=== PATIENT | female | born 1940 | race Caucasian/White ===

== ENCOUNTER 2017-02-12 10:03 | Inpatient (IN) ==
[2017-02-12] MEDS ORDERED: Nitroglycerin 25 MG/250 ML INFUS..BTL IVC ONE (10:08)
[2017-02-12] MEDS: Nitroglycerin 25 MG/250 ML INFUS..BTL IVC SCH ×4 (10:13→20:15)
[2017-02-12] MEDS ORDERED: Furosemide 40 MG/4 ML VIAL ONE (10:16)
[2017-02-12] MEDS ORDERED: Furosemide 80 MG in 0.9 % Sodium Chloride 50 ML IVPB ONE (10:16)
[2017-02-12 10:40] LABS: Basophils % 0.4 %; Eosinophils # 0.1 K/mcL (0.0-0.6); Eosinophils % 1.4 %; Hematocrit 38.8 % (35.3-44.9); Immature Granulocytes % 0.7 % (0-4); Lymphocytes # 1.6 K/mcL (0.6-4.6); Lymphocytes % 22.4 %; Mean Corpuscular HGB Conc 30.9 g/dL (31.6-35.5); Mean Corpuscular Hemoglobin 31.4 pg (28.0-33.3); Mean Corpuscular Volume 101.6 fL (83.0-100.0); Mean Platelet Volume 10.7 fL (9.4-12.4); Monocytes # 0.7 K/mcL (0.0-1.3); Monocytes % 9.2 %; Neutrophils # 4.8 K/mcL (1.6-8.9); Platelet Count 150 K/mcL (140-400); Red Blood Count 3.82 M/mcL (3.82-4.97); Red Cell Distribution Width 12.7 % (11.5-14.5); Segmented Neutrophils % 65.9 %
[2017-02-12 10:50] LABS: BUN/Creatinine Ratio 27 (6-26); Blood Urea Nitrogen 24 mg/dL (7-20); Calcium 9.2 mg/dL (8.6-10.8); Carbon Dioxide 33 mEq/L (19-29); Chloride 102 mEq/L (98-109); Glucose 179 mg/dL (70-99); Osmolality,Calculated 309 (280-300); Potassium 4.1 mEq/L (3.5-4.5); Sodium 145 mEq/L (136-145); eGFR For African Americans > 60 (> 60); eGFR For Non-African Americans > 60 (> 60)
[2017-02-12 10:53] LABS: ABG Base Excess 7.4 mEq/L (-2.0 to 3.0); ABG HCO3 34.8 mEQ/L (21-27); ABG Oxygen Saturation 96 % (95-98); ABG PCO2 63 mmHg (35-45); ABG PH 7.35 pH Units (7.32-7.45); ABG PO2 84 mmHg (85-104); ABG TCO2 36.7 mEq/L (20-26)
[2017-02-12 10:54] LABS: Blood Gas FiO2 50 %
--- NOTE | 2017-02-12 13:41 | General Surg History&Physical ---
Date of Encounter: 02/12/17 Time of Encounter: 14:00 History of Present Illness Chief complaint: Shortness of breath HPI: Ms. Burns is a 76 year old female with past medical history of HTN, A. fib with pacemaker on warfarin, diabetes mellitus type 2 and surgical history of appendicitis, cholecystitis, hysterectomy. Patient had a scheduled cataract surgery today but became altered with shortness of breath and desatting at 50% after the surgery. She states that the shortness of breath started as she tried to get up from the surgical bed. This has not happened in the past. Patient was placed on BIPAP and received 40mg lasix with 25 mg Nitroglycerin before arrival to ICU. Her oxygen saturation at 93% 3L BIPAP currently. Troponin is negative x1. Repeat EKG has no ST elevation and stat echo is ordered. Patient is greatly improved currently. Denies any fever, chills, nausea, vomiting. Denies chest pain, palpitations, or current shortness of breath. Denies any headache, dizziness. Post-surgical right eye vision changes present and expected. Has no other complaints. Past Med Surg Social Fam HX - Past Medical History Medical history: atrial fibrillation, CHF, diabetes, hypertension - Past Surgical History Surgical History: pacemaker/AICD - Social History Smoking Status: Former smoker Smokeless Tobacco Status: No Alcohol use: none Drug use: none Medications and Allergies Divalproex (12 HR) [Depakote (12 HR)] 250 mg PO BID 02/12/17 [History] Flaxseed Oil [[place]-3 Flaxseed Oil] 1,000 mg PO DAILY 02/12/17 [History] Furosemide [Lasix] 40 mg PO DAILY 02/12/17 [History] Gabapentin [Neurontin] 600 mg PO TID 02/12/17 [History] Garlic [Odor Free Garlic] 100 mg PO DAILY 02/12/17 [History] Glimepiride [Amaryl] 4 mg PO BID 02/12/17 [History] Lisinopril [Zestril] 40 mg PO DAILY 02/12/17 [History] Multivitamin/Iron/Folic Acid [Centrum Complete Multivit Tab] 1 tab PO DAILY [History] Oxybutynin Chloride [Ditropan Xl] 10 mg PO BID 02/12/17 [History] Potassium Chloride [Klor-Con 10] 10 meq PO DAILY 02/12/17 [History] Prevagen 1 tab PO DAILY 02/12/17 [History] Rosuvastatin Calcium [Crestor] 10 mg PO DAILY 02/12/17 [History] SitaGLIPtin [Januvia] 100 mg PO DAILY 02/12/17 [History] Sotalol [Betapace] 80 mg PO Q12HR 02/12/17 [History] Tizanidine HCl 2 mg PO BID 02/12/17 [History] Torsemide [Demadex] 20 mg PO DAILY 02/12/17 [History] Warfarin [Coumadin] 5 mg PO MOWEFR 02/12/17 [History] Warfarin [Coumadin] 7.5 mg PO SUTUTHSA 02/12/17 [History] Zinc Gluconate [Zinc] 30 mg PO DAILY 02/12/17 [History] 3 Allergy/AdvReac Type Severity Reaction Status Date / Time adhesive tape Allergy Rash Verified 02/12/17 10:32 Sulfa (Sulfonamide Allergy See Verified 02/12/17 10:32 Antibiotics) Comments Review of Systems All systems PM: A 10-system review of systems was performed and is negative for pertinent findings except as documented above in the HPI. - Constitutional no chills, no fatigue, no fever(s), no headache(s), no weakness, no weight loss - EENT Eyes: right: blurred vision (expected post surgical blurriness), decreased vision (expected post surgical vision changes) Nose, mouth and throat: no abnormal hearing, no neck mass, no sore throat - Cardiovascular other (Patient has a pacemaker ), no chest pain, no chest pain at rest, no chest pain with activity, no diaphoresis, no dyspnea, no dyspnea on exertion, no palpitations, no pedal edema, no radiating pain, no rapid heart rate - Respiratory no dyspnea, no hemoptysis, no wheezing - Gastrointestinal no abdominal pain, no bloating, no diarrhea, no hematemesis, no melena, no vomiting - Genitourinary Genitourinary: no dysuria, no flank pain - Musculoskeletal no muscle weakness, no numbness, no tingling - Integumentary no new lesions, no non-healing lesions, no swelling, no unusual bruising, no wounds - Neurological loss of vision (post surgical vision changes), no confusion, no dizziness, no frequent falls, no headache(s), no memory loss, no numbness, no radicular pain, no sensory deficit, no syncope, no tingling - Psychiatric no confusion, no memory loss - Endocrine no palpitations - Hematologic/Lymphatic no easy bleeding General Surgery Exam Initial Vital Signs Temp Pulse Resp BP Pulse Ox 97.5 F L 81 20 206/104 84 02/12/17 10:04 02/12/17 10:04 02/12/17 10:04 02/12/17 10:04 02/12/17 10:04 - General physical appearance well developed, well nourished, no distress - Eyes PERRL, normal ocular movement Results - Labs 02/12/17 10:20 02/12/17 10:20 Abnormal lab results MCV 101.6 fL (83.0-100.0) H 02/12/17 10:20 MCHC 30.9 g/dL (31.6-35.5) L 02/12/17 10:20 ABG pCO2 63 mmHg (35-45) H 02/12/17 10:45 ABG pO2 84 mmHg (85-104) L 02/12/17 10:45 ABG HCO3 34.8 mEQ/L (21-27) H 02/12/17 10:45 ABG Total CO2 36.7 mEq/L (20-26) H 02/12/17 10:45 ABG Base Excess 7.4 mEq/L (-2.0 to 3.0) H 02/12/17 10:45 Carbon Dioxide 33 mEq/L (19-29) H 02/12/17 10:20 BUN 24 mg/dL (7-20) H 02/12/17 10:20 BUN/Creatinine Ratio 27 (6-26) H 02/12/17 10:20 Glucose 179 mg/dL (70-99) H 02/12/17 10:20 POC Glucose 192 (58-89) H 02/12/17 13:19 Calculated Osmolality 309 (280-300) H 02/12/17 10:20 B-Natriuretic Peptide 833 pg/mL (0-100) H 02/12/17 10:20 All other labs normal.
[2017-02-12] MEDS ORDERED: D5% in Water 1,000 ML IVC PRN (14:12)
[2017-02-12] MEDS ORDERED: *HR* Dextrose 50 % in Water (Syg) 50 ML SYRINGE IVP PRN (14:12)
[2017-02-12] MEDS ORDERED: Dextrose Gel 15 GM PO PRN ×2 (14:12)
--- NOTE | 2017-02-12 14:38 | Emergency Department Note ---
Disposition Clinical Impression: Flash pulmonary edema Disposition: Admitted As Inpatient Condition: Critical General Adult HPI - General Chief complaint: ED Shortness of Breath/Dyspnea Stated complaint: PILLO Time Seen by Provider: 02/12/17 10:15 Source: EMS Nursing Notes Reviewed: Yes Vital Signs Reviewed: Yes - History of Present Illness HPI Narrative: 76-year-old female who presents with concern for pulmonary edema. She apparently was on a cataract surgery in developed acute dyspnea. She was minimally responsive on EMS arrival. Her O2 saturations were 50%. She was started on CPAP at a pressure of 10 and had improvement of mental status as well as hypoxia. On arrival here she presents dyspneic as well as lethargic. She has mild hypoxia. She is currently on CPAP which was initiated by our prehospital providers. Pain Scale: 0 - Related Data Home Medications Medication Instructions Recorded Confirmed Divalproex (12 HR) [Depakote (12 250 mg PO BID 02/12/17 02/12/17 HR)] Flaxseed Oil [[place]-3 Flaxseed Oil] 1,000 mg PO DAILY 02/12/17 02/12/17 Furosemide [Lasix] 40 mg PO DAILY 02/12/17 02/12/17 Gabapentin [Neurontin] 600 mg PO TID 02/12/17 02/12/17 Garlic [Odor Free Garlic] 100 mg PO DAILY 02/12/17 02/12/17 Glimepiride [Amaryl] 4 mg PO BID 02/12/17 02/12/17 Lisinopril [Zestril] 40 mg PO DAILY 02/12/17 02/12/17 Multivitamin/Iron/Folic Acid 1 tab PO DAILY 02/12/17 02/12/17 [Centrum Complete Multivit Tab] Oxybutynin Chloride [Ditropan Xl] 10 mg PO BID 02/12/17 02/12/17 Potassium Chloride [Klor-Con 10] 10 meq PO DAILY 02/12/17 02/12/17 Prevagen 1 tab PO DAILY 02/12/17 Rosuvastatin Calcium [Crestor] 10 mg PO DAILY 02/12/17 02/12/17 SitaGLIPtin [Januvia] 100 mg PO DAILY 02/12/17 02/12/17 Sotalol [Betapace] 80 mg PO Q12HR 02/12/17 02/12/17 Tizanidine HCl 2 mg PO BID 02/12/17 02/12/17 Torsemide [Demadex] 20 mg PO DAILY 02/12/17 02/12/17 Warfarin [Coumadin] 5 mg PO MOWEFR 02/12/17 02/12/17 Warfarin [Coumadin] 7.5 mg PO SUTUTHSA 02/12/17 02/12/17 Zinc Gluconate [Zinc] 30 mg PO DAILY 02/12/17 02/12/17 Allergies Allergy/AdvReac Type Severity Reaction Status Date / Time adhesive tape Allergy Rash Verified 02/12/17 10:32 Sulfa (Sulfonamide Allergy See Verified 02/12/17 10:32 Antibiotics) Comments All systems ED: reviewed and negative except as stated. Past Medical History - Past Medical History Medical history: Reports: atrial fibrillation, CHF, diabetes, hypertension Surgical history: Reports: pacemaker/AICD - Social History Smoking Status: Former smoker Smokeless Tobacco Status: No Alcohol use: Reports: none Drug use: Reports: none Physical Exam Rales to the apices - General Limitations: no limitations General appearance: lethargic, in distress - Head Head exam: atraumatic - Eye Eye exam: Present: normal appearance - ENT ENT exam: other (JVD) - Respiratory Respiratory exam: Present: normal lung sounds bilaterally - Cardiovascular Cardiovascular exam: Present: regular rate - Abdominal Exam Abdominal exam: Present: soft, Non-Tender - Expanded Lower Extremity Exam Neurovascular/Tendon exam: Present: normal capillary refill. Absent: pulse deficit Gait: observed and normal - Back Exam Back exam: Present: normal inspection, full ROM - Neurological Exam Neurological exam: Present: alert, oriented X3, CN II-XII intact - Psychiatric Psychiatric exam: Present: normal affect, depressed - Skin Skin exam: Present: warm - Other Other exam information: Peripheral edema Course Vital Signs Temperature 97.5 F L 02/12/17 10:04 Pulse Rate 81 02/12/17 10:04 Respiratory Rate 20 02/12/17 10:04 Blood Pressure 206/104 02/12/17 10:04 O2 Sat by Pulse Oximetry 84 02/12/17 10:04 Temperature 97.6 F 02/12/17 13:10 Pulse Rate 69 02/12/17 14:00 Respiratory Rate 16 02/12/17 14:00 Blood Pressure 148/72 02/12/17 14:00 O2 Sat by Pulse Oximetry 89 02/12/17 14:00 Oxygen Delivery Oxygen Delivery Nasal Cannula Medical Decision Making - MDM Narrative Medical decision making narrative: 76-year-old female is found to be in flash pulmonary edema. Subsequently determined to be hypertensive. She was placed on BiPAP. She did have some hypoxia on BiPAP so I increased her insulin extra pressure is 20/10. Her work of breathing improved with increased BiPAP settings. Additionally she was started on high dose nitroglycerin infusion and given furosemide. A Samano catheter was placed for strict I's and O's. Rest her status improved on BiPAP. She will be admitted to the intensive care unit for ongoing management of respiratory failure in the setting of flash pulmonary edema. I did order an echocardiogram and this is pending. EKG shows nonspecific changes. - Medical Records Medical records reviewed: Yes I reviewed the patient's medical records. - Lab Data Lab results reviewed: Yes I reviewed the patient's lab results. Result diagrams: 02/12/17 10:20 02/12/17 10:20 Lab Results 02/12/17 02/12/17 02/12/17 Range/Units 10:20 10:20 10:20 WBC 7.2 (4.3-11.1) K/mcL RBC 3.82 (3.82-4.97) M/mcL Hgb 12.0 (11.5-15.4) g/dL Hct 38.8 (35.3-44.9) % MCV 101.6 H (83.0-100.0) fL MCH 31.4 (28.0-33.3) pg MCHC 30.9 L (31.6-35.5) g/dL RDW 12.7 (11.5-14.5) % Plt Count 150 (140-400) K/mcL MPV 10.7 (9.4-12.4) fL Immature Gran % 0.7 (0-4) % Seg Neutrophils % 65.9 % Lymphocytes % 22.4 % Monocytes % 9.2 % Eosinophils % 1.4 % Basophils % 0.4 % Neutrophils # 4.8 (1.6-8.9) K/mcL Lymphocytes # 1.6 (0.6-4.6) K/mcL Monocytes # 0.7 (0.0-1.3) K/mcL Eosinophils # 0.1 (0.0-0.6) K/mcL Basophils # 0.0 (0.0-0.2) K/mcL ABG pH (7.32-7.45) pH Units ABG pCO2 (35-45) mmHg ABG pO2 (85-104) mmHg ABG HCO3 (21-27) mEQ/L ABG Total CO2 (20-26) mEq/L ABG O2 Saturation (95-98) % ABG Base Excess (-2.0 to 3.0) mEq/L Blood Gas Modality Inspired O2 % Sodium 145 (136-145) mEq/L Potassium 4.1 (3.5-4.5) mEq/L Chloride 102 (98-109) mEq/L Carbon Dioxide 33 H (19-29) mEq/L BUN 24 H (7-20) mg/dL Creatinine 0.90 (0.57-1.11) mg/dL Est GFR ( Amer) > 60 (> 60) Est GFR (Non-Af Amer) > 60 (> 60) BUN/Creatinine Ratio 27 H (6-26) Glucose 179 H (70-99) mg/dL Calculated Osmolality 309 H (280-300) Lactic Acid (0.5-2.2) mmol/L Calcium 9.2 (8.6-10.8) mg/dL Troponin I 0.01 (0-0.03) ng/mL B-Natriuretic Peptide (0-100) pg/mL 02/12/17 02/12/17 02/12/17 Range/Units 10:20 10:33 10:45 WBC (4.3-11.1) K/mcL RBC (3.82-4.97) M/mcL Hgb (11.5-15.4) g/dL Hct (35.3-44.9) % MCV (83.0-100.0) fL MCH (28.0-33.3) pg MCHC (31.6-35.5) g/dL RDW (11.5-14.5) % Plt Count (140-400) K/mcL MPV (9.4-12.4) fL Immature Gran % (0-4) % Seg Neutrophils % % Lymphocytes % % Monocytes % % Eosinophils % % Basophils % % Neutrophils # (1.6-8.9) K/mcL Lymphocytes # (0.6-4.6) K/mcL Monocytes # (0.0-1.3) K/mcL Eosinophils # (0.0-0.6) K/mcL Basophils # (0.0-0.2) K/mcL ABG pH 7.35 (7.32-7.45) pH Units ABG pCO2 63 H (35-45) mmHg ABG pO2 84 L (85-104) mmHg ABG HCO3 34.8 H (21-27) mEQ/L ABG Total CO2 36.7 H (20-26) mEq/L ABG O2 Saturation 96 (95-98) % ABG Base Excess 7.4 H (-2.0 to 3.0) mEq/L Blood Gas Modality ST Inspired O2 50 % Sodium (136-145) mEq/L Potassium (3.5-4.5) mEq/L Chloride (98-109) mEq/L Carbon Dioxide (19-29) mEq/L BUN (7-20) mg/dL Creatinine (0.57-1.11) mg/dL Est GFR ( Amer) (> 60) Est GFR (Non-Af Amer) (> 60) BUN/Creatinine Ratio (6-26) Glucose (70-99) mg/dL Calculated Osmolality (280-300) Lactic Acid 1.4 (0.5-2.2) mmol/L Calcium (8.6-10.8) mg/dL Troponin I (0-0.03) ng/mL B-Natriuretic Peptide 833 H (0-100) pg/mL Critical Care Time Total Critical Care Time: 31 Attestation: Greater than 31 minutes of critical care time was assessed in this acutely ill patient requiring noninvasive ventilatory support. This was excluding billable procedures
--- NOTE | 2017-02-12 15:10 | Pulmonology History & Physical ---
<Leeroy Hicks - Last Filed: 02/12/17 15:23> Date of Encounter: 02/12/17 Time of Encounter: 14:30 Assessment and Plan (1) Flash pulmonary edema Current visit: Yes Status: Acute Patient received lasix and nitroglycerin 25mg upon arrival. She has greatly improved. Currently satting at 97% on 4L. Consider weaning Nitroglycerin. Will decrease oxygen as needed. Abnormal EKG secondary to pacemaker. Repeat EKG reveals no ST segment elevation and consistent with pacemaker. Rate is 60. QRS narrow. No QT prolongation. Abnormal T wave inversions on V1-3. Troponin negative x1. Pending stat Echo. Continue home medications. Protonix for GI prophylaxis. Monitor with a.m. labs. So far pulmonary edema does not seem to have cardiac etiology. Will discharge patient if Echo is negative and patient continues to recover well. (2) Shortness of breath Current visit: Yes Status: Acute Patient is on BIPAP 4L and satting well. Dypsnea is currently resolved. Wean Oxygen as tolerated. Continue to monitor vital signs and oxygen saturation. (3) Atrial fibrillation Current visit: No Status: Acute Patient to continue Warfarin tonight. Will continue to monitor with vital signs. Qualifiers: Qualified Code(s): I48.91 - Unspecified atrial fibrillation (4) Pacemaker Current visit: No Status: Acute Continue Warfarin therapy and monitor with vital signs. (5) DVT prophylaxis Current visit: Yes Status: Acute Patient is on Coumadin for A. fib and pacemaker. Continue her warfarin 7.5mg PO tonight. (6) Diabetes insipidus Current visit: No Status: Acute Continue home medication. History of Present Illness Chief complaint: Shortness of breath HPI: Ms. Burns is a 76 year old female with past medical history of diabetes mellitis type 2, atrial fibrillation on pacemaker and coumadin, hypertension, and surgical history of appendectomy, cholecystectomy, hysterectomy presents with shortness of breath and minimally responsive today status post-cateract surgery in the morning. She was scheduled for the surgery today and became dypsnic and desatting in the 50s% after the surgery. She states this happened as she tried to get up form the surgical table. She denies any accompanying headache, dizziness, chest pain, shortness of breath, palpitations, nausea, vomiting. She denies loss of consciousness. She has never had a similar episode in the past. She was given 40mg or lasix and 25mg of nitroglycerin before admission to ICU and BIPAP was started. She is currently satting at 93% on 4L. Patient reports doing much better. She has no current complaints and just wishes to have some dinner. Troponin is negative x1, patient had abnormal EKG. Stat echo is pending. Past Med Surg Social Fam HX - Past Medical History Medical history: atrial fibrillation, CHF, diabetes, hypertension - Past Surgical History Surgical History: pacemaker/AICD - Social History Smoking Status: Former smoker Smokeless Tobacco Status: No Alcohol use: none Drug use: none Medications and Allergies Divalproex (12 HR) [Depakote (12 HR)] 250 mg PO BID 02/12/17 [History] Flaxseed Oil [[place]-3 Flaxseed Oil] 1,000 mg PO DAILY 02/12/17 [History] Furosemide [Lasix] 40 mg PO DAILY 02/12/17 [History] Gabapentin [Neurontin] 600 mg PO TID 02/12/17 [History] Garlic [Odor Free Garlic] 100 mg PO DAILY 02/12/17 [History] Glimepiride [Amaryl] 4 mg PO BID 02/12/17 [History] Lisinopril [Zestril] 40 mg PO DAILY 02/12/17 [History] Multivitamin/Iron/Folic Acid [Centrum Complete Multivit Tab] 1 tab PO DAILY [History] Oxybutynin Chloride [Ditropan Xl] 10 mg PO BID 02/12/17 [History] Potassium Chloride [Klor-Con 10] 10 meq PO DAILY 02/12/17 [History] Prevagen 1 tab PO DAILY 02/12/17 [History] Rosuvastatin Calcium [Crestor] 10 mg PO DAILY 02/12/17 [History] SitaGLIPtin [Januvia] 100 mg PO DAILY 02/12/17 [History] Sotalol [Betapace] 80 mg PO Q12HR 02/12/17 [History] Tizanidine HCl 2 mg PO BID 02/12/17 [History] Torsemide [Demadex] 20 mg PO DAILY 02/12/17 [History] Warfarin [Coumadin] 5 mg PO MOWEFR 02/12/17 [History] Warfarin [Coumadin] 7.5 mg PO SUTUTHSA 02/12/17 [History] Zinc Gluconate [Zinc] 30 mg PO DAILY 02/12/17 [History] 3 Allergy/AdvReac Type Severity Reaction Status Date / Time adhesive tape Allergy Rash Verified 02/12/17 10:32 Sulfa (Sulfonamide Allergy See Verified 02/12/17 10:32 Antibiotics) Comments All Systems: A 10-system review of systems was performed and is negative for pertinent findings except as documented above in the HPI. - Constitutional Constitutional: no anorexia, no chills, no fatigue, no fever(s), no frequent falls, no headache(s), no night sweats, no weakness - EENT Eyes: loss of vision (expected post-surgical right visual changes), no photophobia Nose, mouth and throat: no dizziness, no headache(s), no neck pain, no sore throat - Cardiovascular Cardiovascular: no chest pain, no chest pain at rest, no chest pain with activity, no diaphoresis, no dyspnea, no dyspnea on exertion, no leg edema, no lightheadedness, no palpitations, no radiating pain, no rapid heart rate, no syncope - Respiratory Respiratory: no dyspnea, no hemoptysis, no wheezing - Gastrointestinal Gastrointestinal: no diarrhea, no hematemesis, no nausea, no vomiting - Genitourinary Genitourinary: no difficulty voiding, no dysuria - Musculoskeletal Musculoskeletal: no weakness, no tingling - Integumentary Integumentary: no rash - Neurological Neurological: no confusion, no dizziness, no focal weakness, no frequent falls, no headache(s), no memory loss, no numbness, no paresthesias, no radicular pain , no syncope, no tingling - Endocrine Endocrine: no excessive sweating - Hematologic/Lymphatic Hematologic/Lymphatic: no easy bleeding Physical Examination Vital Signs: Vital Signs, Last 4 Hours Temp Pulse Resp BP Pulse Ox 02/12/17 14:00 69 16 148/72 89 02/12/17 13:21 16 128/72 02/12/17 13:10 97.6 F 67 16 129/95 93 General appearance: no acute distress, alert Eyes: nonicteric ENT: oropharynx moist Neck: supple Effort: normal, other (BIPAP on 4L ) Inspection: normal Auscultation: bilateral: clear Percussion: bilateral: not dull Cardiovascular: irregular rhythm, other (patient has a pacemaker) Gastrointestinal: normoactive bowel sounds, non-distended Integumentary: normal Extremities: no cyanosis, no edema, no clubbing Musculoskeletal: no deformities Gait: normal posture CN II-XII normal Results - Laboratory Findings CBC and BMP: 02/12/17 10:20 02/12/17 10:20 ABG ABG pH 7.35 pH Units (7.32-7.45) 02/12/17 10:45 ABG pCO2 63 mmHg (35-45) H 02/12/17 10:45 ABG pO2 84 mmHg (85-104) L 02/12/17 10:45 ABG O2 Saturation 96 % (95-98) 02/12/17 10:45 Abnormal lab findings: Abnormal lab results MCV 101.6 fL (83.0-100.0) H 02/12/17 10:20 MCHC 30.9 g/dL (31.6-35.5) L 02/12/17 10:20 ABG pCO2 63 mmHg (35-45) H 02/12/17 10:45 ABG pO2 84 mmHg (85-104) L 02/12/17 10:45 ABG HCO3 34.8 mEQ/L (21-27) H 02/12/17 10:45 ABG Total CO2 36.7 mEq/L (20-26) H 02/12/17 10:45 ABG Base Excess 7.4 mEq/L (-2.0 to 3.0) H 02/12/17 10:45 Carbon Dioxide 33 mEq/L (19-29) H 02/12/17 10:20 BUN 24 mg/dL (7-20) H 02/12/17 10:20 BUN/Creatinine Ratio 27 (6-26) H 02/12/17 10:20 Glucose 179 mg/dL (70-99) H 02/12/17 10:20 POC Glucose 192 (58-89) H 02/12/17 13:19 Calculated Osmolality 309 (280-300) H 02/12/17 10:20 B-Natriuretic Peptide 833 pg/mL (0-100) H 02/12/17 10:20 <Ivelisse Vasquez M - Last Filed: 02/12/17 20:36> Date of Encounter: 02/12/17 History of Present Illness HPI: Ms. Burns is a 76 year old female All Systems: A 10-system review of systems was performed and is negative for pertinent findings except as documented above in the HPI. Physical Examination Vital Signs: Vital Signs, Last 4 Hours Temp Pulse Resp BP Pulse Ox 02/12/17 20:05 75 16 159/96 96 02/12/17 20:00 98.0 F 75 02/12/17 19:00 75 16 178/82 95 02/12/17 18:00 75 16 141/104 95 02/12/17 17:00 75 16 148/88 95 Results - Laboratory Findings CBC and BMP: 02/12/17 10:20 02/12/17 10:20 ABG ABG pH 7.35 pH Units (7.32-7.45) 02/12/17 10:45 ABG pCO2 63 mmHg (35-45) H 02/12/17 10:45 ABG pO2 84 mmHg (85-104) L 02/12/17 10:45 ABG O2 Saturation 96 % (95-98) 02/12/17 10:45 Abnormal lab findings: Abnormal lab results MCV 101.6 fL (83.0-100.0) H 02/12/17 10:20 MCHC 30.9 g/dL (31.6-35.5) L 02/12/17 10:20 ABG pCO2 63 mmHg (35-45) H 02/12/17 10:45 ABG pO2 84 mmHg (85-104) L 02/12/17 10:45 ABG HCO3 34.8 mEQ/L (21-27) H 02/12/17 10:45 ABG Total CO2 36.7 mEq/L (20-26) H 02/12/17 10:45 ABG Base Excess 7.4 mEq/L (-2.0 to 3.0) H 02/12/17 10:45 Carbon Dioxide 33 mEq/L (19-29) H 02/12/17 10:20 BUN 24 mg/dL (7-20) H 02/12/17 10:20 BUN/Creatinine Ratio 27 (6-26) H 02/12/17 10:20 Glucose 179 mg/dL (70-99) H 02/12/17 10:20 POC Glucose 209 (58-89) H 02/12/17 19:50 Calculated Osmolality 309 (280-300) H 02/12/17 10:20 B-Natriuretic Peptide 833 pg/mL (0-100) H 02/12/17 10:20 - Attending Attestation I examined this patient and my medical decision-making was reviewed with the Resident Physician. I agree with the documented findings, disposition and treatment plan as described except to the extent set forth below. Patient seen and examined. I was called by emergency medicine physician to see this patient in the emergency room and then she was evaluated in ICU. Labs, radiology, chart personally reviewed. Agree with resident's history and physical, assessment, plan with following comments: INDUSTRIAL ORGANIZATIONAL PSYCHOLOGIST: Patient follows commands, Pulmonary: Acceptable oxygenation and ventilation. Patient is on noninvasive ventilation and she will need to be on it on and off and preferably at night. Cardiovascular: patient with significant history of congestive heart failure and may suspect today to surgery she had pulmonary edema and she is currently nitroglycerin drip which will be weaned off as tolerated and resume her home medication. Her A. fib , overall his rate control. GI: Nutrition per dietary and GI prophylaxis per routine. Heme: DVT prophylaxis per routine patient needs anticoagulation for her history ID: there is no evidence of infection Renal; urine out put and renal funtion reviewed Endorcine: blood glucose is monitored Lines: all lines checked and no evidence of infections Skin: skin care to prevent pressure ulcers per nursing routine care I had extensive discussion with the family at the bedside. I spent 35 min of Critical Care time with this patient. It involved decision making of high complexity to assess, manipulate, and support vital organ system failure and/or to prevent further life threatening deterioration of the patient' s condition. The time involved in the performance of separately reportable procedures was not counted toward critical care time.
[2017-02-12] MEDS: Insulin LISPRO 300 UNITS/3 ML VIAL SQ SCH ×2 (16:50→20:15)
[2017-02-12] MEDS ORDERED: *HR* Warfarin 7.5 MG TABLET PO SCH (18:00)
[2017-02-12] MEDS: Furosemide 40 MG TABLET PO SCH (18:36)
[2017-02-12] MEDS: Lisinopril 20 MG TABLET PO SCH (18:36)
[2017-02-12] MEDS: tiZANidine 4 MG TABLET PO SCH (20:14)
[2017-02-12] MEDS: Divalproex (12 HR) 250 MG TABLET PO SCH (20:25)
--- NOTE | 2017-02-12 20:53 | Electrocardiograph Report ---
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
[2017-02-13] MEDS: Nitroglycerin 25 MG/250 ML INFUS..BTL IVC SCH (04:00)
[2017-02-13 07:32] LABS: Basophils % 0.4 %; Eosinophils % 0.6 %; Immature Granulocytes % 0.3 % (0-4); Lymphocytes # 1.2 K/mcL (0.6-4.6); Lymphocytes % 17.5 %; Mean Corpuscular HGB Conc 32.5 g/dL (31.6-35.5); Mean Corpuscular Hemoglobin 32.3 pg (28.0-33.3); Mean Corpuscular Volume 99.4 fL (83.0-100.0); Mean Platelet Volume 10.8 fL (9.4-12.4); Monocytes # 0.8 K/mcL (0.0-1.3); Monocytes % 10.8 %; Neutrophils # 4.9 K/mcL (1.6-8.9); Platelet Count 128 K/mcL (140-400); Red Blood Count 3.22 M/mcL (3.82-4.97); Red Cell Distribution Width 12.8 % (11.5-14.5); Segmented Neutrophils % 70.4 %
[2017-02-13] MEDS ORDERED: Furosemide 80 MG in 0.9 % Sodium Chloride 50 ML IVPB ONE (07:45)
[2017-02-13 07:51] LABS: Hemoglobin 10.4 g/dL (11.5-15.4)
[2017-02-13 07:52] LABS: BUN/Creatinine Ratio 24 (6-26); Blood Urea Nitrogen 18 mg/dL (7-20); Carbon Dioxide 33 mEq/L (19-29); Chloride 101 mEq/L (98-109); Glucose 192 mg/dL (70-99); Osmolality,Calculated 303 (280-300); Potassium 3.7 mEq/L (3.5-4.5); Sodium 143 mEq/L (136-145); eGFR For African Americans > 60 (> 60); eGFR For Non-African Americans > 60 (> 60)
--- NOTE | 2017-02-13 07:55 | Pulmonology Progress Note ---
<Leeroy Hicks - Last Filed: 02/13/17 09:40> Date of Encounter: 02/13/17 Time of Encounter: 08:30 Assessment and Plan (1) Flash pulmonary edema Current Visit: Yes Status: Acute Patient continues to be fluid overloaded with a fluid balance of -625 yesterday. She continues to be dypsneic without hypoxic episodes. Started BIPAP today. Continue to monitor with physical exams and vital signs. Another dose of Lasix 80mg IVP infusion ordered. I spoke with the pharmacist who recommends to withhold her evening diuretic for now and restart if patient still appears fluid overloaded. We are currently weaning Nitroglycerin currently at 9mls/hr Pending Echo. Protonix for GI prophylaxis. Continue monitoring with a.m. labs. (2) Hypertension Current Visit: Yes Status: Acute Patient's blood pressure is baseline 160s/70s. I restarted her lisinopril 40mg PO daily, but adding Norvasc this a.m. as her BP is gradually rising. Qualifiers: Qualified Code(s): I10 - Essential (primary) hypertension (3) Shortness of breath Current Visit: Yes Status: Acute Patient is on BIPAP 4L and satting well. She is dypsneic today. Wean BIPAP as tolerated. Continue to monitor vital signs and oxygen saturation. (4) Atrial fibrillation Current Visit: No Status: Acute Patient to continue Warfarin tonight. Will continue to monitor with vital signs and coagulation studies. Qualifiers: Qualified Code(s): I48.91 - Unspecified atrial fibrillation (5) Pacemaker Current Visit: No Status: Acute Continue Warfarin therapy and monitor with vital signs, PT/INR (6) DVT prophylaxis Current Visit: Yes Status: Acute Patient is on Coumadin for A. fib and pacemaker. Continue her warfarin. (7) Diabetes insipidus Current Visit: No Status: Acute POC 204/209. Continue medium SSI. Subjective Principal diagnosis: Flash Pulmonary edema Interval history: No overnight events. Patient is having shortness of breath today and blood pressure baseline in 160s/70s. Patient appears fluid overloaded. Complains of dizziness but no chest pain. No fever, chills, nausea, vomiting. Objective PUL Vital signs: Last Vital Signs Temp 98.5 F 02/13/17 07:52 Pulse 60 02/13/17 07:00 Resp 20 02/13/17 07:00 BP 163/77 02/13/17 07:00 Pulse Ox 97 02/13/17 07:00 General appearance: no acute distress Eyes: nonicteric ENT: other (On BIPAP) Neck: supple Effort: mildly labored Auscultation: bilateral: clear Cardiovascular: regular rate and rhythm Gastrointestinal: normoactive bowel sounds, non-distended Integumentary: normal Extremities: no cyanosis, no clubbing, pulses normal, edema (all extremities 1+) Musculoskeletal: no deformities Gait: normal posture normal mental status, non-focal exam mood appropriate, affect normal Results - Laboratory Findings CBC and BMP: 02/13/17 07:13 02/13/17 07:13 ABG ABG pH 7.35 pH Units (7.32-7.45) 02/12/17 10:45 ABG pCO2 63 mmHg (35-45) H 02/12/17 10:45 ABG pO2 84 mmHg (85-104) L 02/12/17 10:45 ABG O2 Saturation 96 % (95-98) 02/12/17 10:45 Abnormal lab findings: Abnormal lab results RBC 3.22 M/mcL (3.82-4.97) L 02/13/17 07:13 Hgb 10.4 g/dL (11.5-15.4) L D 02/13/17 07:13 Hct 32.0 % (35.3-44.9) L 02/13/17 07:13 Plt Count 128 K/mcL (140-400) L 02/13/17 07:13 ABG pCO2 63 mmHg (35-45) H 02/12/17 10:45 ABG pO2 84 mmHg (85-104) L 02/12/17 10:45 ABG HCO3 34.8 mEQ/L (21-27) H 02/12/17 10:45 ABG Total CO2 36.7 mEq/L (20-26) H 02/12/17 10:45 ABG Base Excess 7.4 mEq/L (-2.0 to 3.0) H 02/12/17 10:45 Carbon Dioxide 33 mEq/L (19-29) H 02/12/17 10:20 BUN 24 mg/dL (7-20) H 02/12/17 10:20 BUN/Creatinine Ratio 27 (6-26) H 02/12/17 10:20 Glucose 179 mg/dL (70-99) H 02/12/17 10:20 POC Glucose 204 (58-89) H 02/13/17 07:32 Calculated Osmolality 309 (280-300) H 02/12/17 10:20 B-Natriuretic Peptide 833 pg/mL (0-100) H 02/12/17 10:20 - Clinical Findings Intake & Output: Intake & Output 02/12/17 02/12/17 02/13/17 15:59 23:59 07:59 Intake Total 610 / 640 300 / 300 45 / 45 Output Total 1300 / 1300 925 / 925 450 / 450 Balance -690 / -660 -625 / -625 -405 / -405 Weight 127 kg Consult Discharge Plan - Plan Referrals: Chester Mcknight M.D. [Primary Care Provider] - <Ivelisse Vasquez - Last Filed: 02/13/17 10:29> Date of Encounter: 02/13/17 Objective PUL Vital signs: Last Vital Signs Temp 98.5 F 02/13/17 07:52 Pulse 60 02/13/17 10:00 Resp 12 02/13/17 10:00 BP 86/55 02/13/17 10:00 Pulse Ox 96 02/13/17 10:00 Results - Laboratory Findings CBC and BMP: 02/13/17 07:13 02/13/17 07:13 ABG ABG pH 7.35 pH Units (7.32-7.45) 02/12/17 10:45 ABG pCO2 63 mmHg (35-45) H 02/12/17 10:45 ABG pO2 84 mmHg (85-104) L 02/12/17 10:45 ABG O2 Saturation 96 % (95-98) 02/12/17 10:45 Abnormal lab findings: Abnormal lab results RBC 3.22 M/mcL (3.82-4.97) L 02/13/17 07:13 Hgb 10.4 g/dL (11.5-15.4) L D 02/13/17 07:13 Hct 32.0 % (35.3-44.9) L 02/13/17 07:13 Plt Count 128 K/mcL (140-400) L 02/13/17 07:13 ABG pCO2 63 mmHg (35-45) H 02/12/17 10:45 ABG pO2 84 mmHg (85-104) L 02/12/17 10:45 ABG HCO3 34.8 mEQ/L (21-27) H 02/12/17 10:45 ABG Total CO2 36.7 mEq/L (20-26) H 02/12/17 10:45 ABG Base Excess 7.4 mEq/L (-2.0 to 3.0) H 02/12/17 10:45 Carbon Dioxide 33 mEq/L (19-29) H 02/13/17 07:13 Glucose 192 mg/dL (70-99) H 02/13/17 07:13 POC Glucose 204 (58-89) H 02/13/17 07:32 Calculated Osmolality 303 (280-300) H 02/13/17 07:13 B-Natriuretic Peptide 833 pg/mL (0-100) H 02/12/17 10:20 - Clinical Findings Intake & Output: Intake & Output 02/12/17 02/13/17 02/13/17 23:59 07:59 15:59 Intake Total 300 / 300 45 / 45 Output Total 925 / 925 450 / 450 Balance -625 / -625 -405 / -405 Weight 127 kg - Attending Attestation I examined this patient and my medical decision-making was reviewed with the Resident Physician. I agree with the documented findings, disposition and treatment plan as described except to the extent set forth below. Patient seen and examined. Labs, radiology, chart personally reviewed. 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 Cardiovascular: Patient is still requiring nitroglycerin drip which we are trying to wean it off by adding Norvasc and diuresis. Closely monitor her cardiac function and follow up on the echocardiogram if significantly abnormal will consider cardiology consultation GI: Nutrition per dietary and GI prophylaxis per routine Heme: DVT prophylaxis per routine ID: No evidence of infections Renal; urine out put and renal funtion reviewed Endorcine: blood glucose is monitored Lines: all lines checked and no evidence of infections Skin: skin care to prevent pressure ulcers per nursing routine care Patient needs to stay in the intensive care unit because of her uncontrolled blood pressure still requiring nitroglycerin drip I spent 32 min of Critical Care time with this patient. It involved decision making of high complexity to assess, manipulate, and support vital organ system failure and/or to prevent further life threatening deterioration of the patient' s condition. The time involved in the performance of separately reportable procedures was not counted toward critical care time.
[2017-02-13] MEDS: Lisinopril 20 MG TABLET PO SCH (08:22)
[2017-02-13] MEDS: Divalproex (12 HR) 250 MG TABLET PO SCH ×2 (08:23→20:43)
[2017-02-13] MEDS: tiZANidine 4 MG TABLET PO SCH ×2 (08:23→20:43)
[2017-02-13] MEDS: amLODIPine 5 MG TABLET PO SCH ×2 (08:23→12:25)
[2017-02-13] MEDS: Insulin LISPRO 300 UNITS/3 ML VIAL SQ SCH ×4 (08:24→20:40)
[2017-02-13] MEDS: Furosemide 40 MG TABLET PO SCH (08:25)
[2017-02-13] MEDS ORDERED: Pantoprazole 40 MG VIAL IVP SCH (09:00)
[2017-02-13] MEDS ORDERED: amLODIPine 5 MG TABLET PO SCH (09:00)
[2017-02-13] MEDS ORDERED: Torsemide 20 MG TABLET PO SCH (09:00)
[2017-02-13] MEDS ORDERED: Furosemide Oral Soln 40 MG/4 ML UDC PO SCH (09:00)
[2017-02-13] MEDS ORDERED: Lisinopril 20 MG TABLET PO SCH (09:00)
[2017-02-13] MEDS ORDERED: Ibuprofen 400 MG TABLET PO ONE (14:44)
[2017-02-13 14:46] LABS: INR 2.4
[2017-02-13 15:45] LABS: VBG HCO3 38.4 mEq/L (21-27); VBG PH 7.46 pH Units (7.32-7.42)
[2017-02-13] MEDS ORDERED: Warfarin perPT PO PRN (18:00)
[2017-02-13] MEDS ORDERED: *HR* Warfarin 5 MG TABLET PO SCH (18:00)
[2017-02-14 03:30] LABS: ABG Base Excess 5.7 mEq/L (-2.0 to 3.0); ABG HCO3 31.9 mEQ/L (21-27); ABG Oxygen Saturation 99 % (95-98); ABG PCO2 54 mmHg (35-45); ABG PH 7.38 pH Units (7.32-7.45); ABG PO2 129 mmHg (85-104); ABG TCO2 33.6 mEq/L (20-26); Blood Gas FiO2 40 %
[2017-02-14 06:05] LABS: Basophils % 0.4 %; Eosinophils # 0.1 K/mcL (0.0-0.6); Eosinophils % 1.5 %; Immature Granulocytes % 0.4 % (0-4); Lymphocytes # 1.3 K/mcL (0.6-4.6); Lymphocytes % 27.4 %; Mean Corpuscular HGB Conc 31.3 g/dL (31.6-35.5); Mean Corpuscular Hemoglobin 31.1 pg (28.0-33.3); Mean Corpuscular Volume 99.4 fL (83.0-100.0); Mean Platelet Volume 10.7 fL (9.4-12.4); Monocytes # 0.5 K/mcL (0.0-1.3); Monocytes % 9.6 %; Neutrophils # 2.8 K/mcL (1.6-8.9); Platelet Count 123 K/mcL (140-400); Red Blood Count 3.22 M/mcL (3.82-4.97); Red Cell Distribution Width 12.8 % (11.5-14.5); Segmented Neutrophils % 60.7 %
[2017-02-14 06:06] LABS: INR 2.1; Prothrombin Time 22.8 Seconds (9.4-12.1)
[2017-02-14 06:16] LABS: Alanine Aminotransferase 13 Units/L (0-55); Alkaline Phosphatase 49 Units/L (38-126); Aspartate Amino Transferase 14 Units/L (5-34); BUN/Creatinine Ratio 21 (6-26); Bilirubin,Total 0.7 mg/dL (0.2-1.2); Blood Urea Nitrogen 16 mg/dL (7-20); Carbon Dioxide 30 mEq/L (19-29); Chloride 103 mEq/L (98-109); Globulin 3.1 g/dL (2.4-3.5); Glucose 173 mg/dL (70-99); Osmolality,Calculated 293 (280-300); Potassium 3.4 mEq/L (3.5-4.5); Sodium 139 mEq/L (136-145); Total Protein 6.1 g/dL (6.0-8.3); eGFR For African Americans > 60 (> 60); eGFR For Non-African Americans > 60 (> 60)
[2017-02-14] MEDS: Nitroglycerin 25 MG/250 ML INFUS..BTL IVC SCH ×5 (07:52→08:38)
[2017-02-14] MEDS: Divalproex (12 HR) 250 MG TABLET PO SCH ×2 (08:48→20:42)
[2017-02-14] MEDS: tiZANidine 4 MG TABLET PO SCH ×2 (08:48→20:42)
[2017-02-14] MEDS: Lisinopril 20 MG TABLET PO SCH (08:49)
[2017-02-14] MEDS: amLODIPine 5 MG TABLET PO SCH (08:50)
[2017-02-14] MEDS: Furosemide 40 MG TABLET PO SCH (08:50)
[2017-02-14] MEDS: Insulin LISPRO 300 UNITS/3 ML VIAL SQ SCH ×4 (08:51→21:24)
--- NOTE | 2017-02-14 08:52 | Pulmonology Progress Note ---
<Leeroy Hicks - Last Filed: 02/14/17 09:14> Date of Encounter: 02/14/17 Time of Encounter: 08:40 Assessment and Plan (1) Flash pulmonary edema Current Visit: Yes Status: Acute Patient shortness of breath is improved today. VS are stable. Nitroglycerin has been weaned off. Samano removed. Echo shows ejection fraction 40-45%, basal septal hypertrophy, moderate MR, no pulmonary hypertension. Patient can be transferred to tele unit. (2) Hypertension Current Visit: Yes Status: Acute Patient's blood pressure is stable and nitroglycerin has been weaned off. Discontinue Norvasc. Continue home medications. Qualifiers: Qualified Code(s): I10 - Essential (primary) hypertension (3) Shortness of breath Current Visit: Yes Status: Acute We will start weaning off BIPAP (4) Atrial fibrillation Current Visit: No Status: Acute Patient to continue Warfarin tonight. Will continue to monitor with vital signs and coagulation studies. Qualifiers: Qualified Code(s): I48.91 - Unspecified atrial fibrillation (5) Pacemaker Current Visit: No Status: Acute Continue Warfarin therapy and monitor with vital signs, PT/INR (6) DVT prophylaxis Current Visit: Yes Status: Acute Patient is on Coumadin for A. fib and pacemaker. Continue her warfarin. (7) Diabetes insipidus Current Visit: No Status: Acute Continue medium SSI. Subjective Principal diagnosis: Flash Pulmonary edema Interval history: Patient had episode of delirium on BIPAP last night. Currently no altered mental status. No other overnight events. Objective PUL Vital signs: Last Vital Signs Temp 97.9 F 02/14/17 07:30 Pulse 60 02/14/17 08:00 Resp 18 02/14/17 08:00 BP 159/66 02/14/17 08:00 Pulse Ox 95 02/14/17 08:00 General appearance: no acute distress Eyes: nonicteric ENT: oropharynx moist Neck: supple Effort: normal Cardiovascular: regular rate and rhythm Gastrointestinal: normoactive bowel sounds, non-distended Integumentary: normal Extremities: no cyanosis Musculoskeletal: no deformities Gait: normal posture normal mental status, non-focal exam mood appropriate, affect normal Results - Laboratory Findings CBC and BMP: 02/14/17 05:55 02/14/17 05:55 ABG ABG pH 7.38 pH Units (7.32-7.45) 02/14/17 03:20 ABG pCO2 54 mmHg (35-45) H 02/14/17 03:20 ABG pO2 129 mmHg (85-104) H 02/14/17 03:20 ABG O2 Saturation 99 % (95-98) H 02/14/17 03:20 PT/INR, D-dimer PT 22.8 Seconds (9.4-12.1) H 02/14/17 05:55 Abnormal lab findings: Abnormal lab results RBC 3.22 M/mcL (3.82-4.97) L 02/14/17 05:55 Hgb 10.0 g/dL (11.5-15.4) L 02/14/17 05:55 Hct 32.0 % (35.3-44.9) L 02/14/17 05:55 MCHC 31.3 g/dL (31.6-35.5) L 02/14/17 05:55 Plt Count 123 K/mcL (140-400) L 02/14/17 05:55 PT 22.8 Seconds (9.4-12.1) H 02/14/17 05:55 ABG pCO2 54 mmHg (35-45) H 02/14/17 03:20 ABG pO2 129 mmHg (85-104) H 02/14/17 03:20 ABG HCO3 31.9 mEQ/L (21-27) H 02/14/17 03:20 ABG Total CO2 33.6 mEq/L (20-26) H 02/14/17 03:20 ABG O2 Saturation 99 % (95-98) H 02/14/17 03:20 ABG Base Excess 5.7 mEq/L (-2.0 to 3.0) H 02/14/17 03:20 VBG pH 7.46 pH Units (7.32-7.42) H 02/13/17 15:28 VBG pCO2 54 mmHg (41-51) H 02/13/17 15:28 VBG pO2 77 mmHg (25-40) H 02/13/17 15:28 VBG HCO3 38.4 mEq/L (21-27) H 02/13/17 15:28 Potassium 3.4 mEq/L (3.5-4.5) L 02/14/17 05:55 Carbon Dioxide 30 mEq/L (19-29) H 02/14/17 05:55 Glucose 173 mg/dL (70-99) H 02/14/17 05:55 POC Glucose 188 (58-89) H 02/14/17 07:18 B-Natriuretic Peptide 833 pg/mL (0-100) H 02/12/17 10:20 Albumin 3.0 g/dL (3.5-5.0) L 02/14/17 05:55 Albumin/Globulin Ratio 1.0 (1.1-2.2) L 02/14/17 05:55 - Clinical Findings Intake & Output: Intake & Output 02/13/17 02/14/17 02/14/17 23:59 07:59 15:59 Intake Total 108 / 108 0 / 0 Output Total 700 / 700 675 / 675 Balance -592 / -592 -675 / -675 Weight 126.2 kg Consult Discharge Plan - Plan Referrals: Chester Mcknight M.D. [Primary Care Provider] - <Ivelisse Vasquez - Last Filed: 02/14/17 10:39> Date of Encounter: 02/14/17 Objective PUL Vital signs: Last Vital Signs Temp 97.9 F 02/14/17 07:30 Pulse 60 02/14/17 10:00 Resp 18 02/14/17 10:00 BP 109/56 02/14/17 10:00 Pulse Ox 92 02/14/17 10:00 Results - Laboratory Findings CBC and BMP: 02/14/17 05:55 02/14/17 05:55 ABG ABG pH 7.38 pH Units (7.32-7.45) 02/14/17 03:20 ABG pCO2 54 mmHg (35-45) H 02/14/17 03:20 ABG pO2 129 mmHg (85-104) H 02/14/17 03:20 ABG O2 Saturation 99 % (95-98) H 02/14/17 03:20 PT/INR, D-dimer PT 22.8 Seconds (9.4-12.1) H 02/14/17 05:55 Abnormal lab findings: Abnormal lab results RBC 3.22 M/mcL (3.82-4.97) L 02/14/17 05:55 Hgb 10.0 g/dL (11.5-15.4) L 02/14/17 05:55 Hct 32.0 % (35.3-44.9) L 02/14/17 05:55 MCHC 31.3 g/dL (31.6-35.5) L 02/14/17 05:55 Plt Count 123 K/mcL (140-400) L 02/14/17 05:55 PT 22.8 Seconds (9.4-12.1) H 02/14/17 05:55 ABG pCO2 54 mmHg (35-45) H 02/14/17 03:20 ABG pO2 129 mmHg (85-104) H 02/14/17 03:20 ABG HCO3 31.9 mEQ/L (21-27) H 02/14/17 03:20 ABG Total CO2 33.6 mEq/L (20-26) H 02/14/17 03:20 ABG O2 Saturation 99 % (95-98) H 02/14/17 03:20 ABG Base Excess 5.7 mEq/L (-2.0 to 3.0) H 02/14/17 03:20 VBG pH 7.46 pH Units (7.32-7.42) H 02/13/17 15:28 VBG pCO2 54 mmHg (41-51) H 02/13/17 15:28 VBG pO2 77 mmHg (25-40) H 02/13/17 15:28 VBG HCO3 38.4 mEq/L (21-27) H 02/13/17 15:28 Potassium 3.4 mEq/L (3.5-4.5) L 02/14/17 05:55 Carbon Dioxide 30 mEq/L (19-29) H 02/14/17 05:55 Glucose 173 mg/dL (70-99) H 02/14/17 05:55 POC Glucose 188 (58-89) H 02/14/17 07:18 B-Natriuretic Peptide 833 pg/mL (0-100) H 02/12/17 10:20 Albumin 3.0 g/dL (3.5-5.0) L 02/14/17 05:55 Albumin/Globulin Ratio 1.0 (1.1-2.2) L 02/14/17 05:55 - Clinical Findings Intake & Output: Intake & Output 02/13/17 02/14/17 02/14/17 23:59 07:59 15:59 Intake Total 108 / 108 0 / 0 Output Total 700 / 700 675 / 675 Balance -592 / -592 -675 / -675 Weight 126.2 kg - Attending Attestation I examined this patient and my medical decision-making was reviewed with the Resident Physician. I agree with the documented findings, disposition and treatment plan as described except to the extent set forth below. Patient seen and examined. Labs, radiology, chart personally reviewed. 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 Pulmonary: Acceptable oxygenation and ventilation Cardiovascular: stable. 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
[2017-02-14] MEDS ORDERED: Furosemide 40 MG TABLET PO SCH (11:00)
[2017-02-14] MEDS ORDERED: *HR* Dextrose 50 % in Water (Syg) 50 ML SYRINGE IVP PRN (11:02)
[2017-02-14] MEDS ORDERED: Dextrose Gel 15 GM PO PRN ×2 (11:02)
[2017-02-14] MEDS ORDERED: D5% in Water 1,000 ML IVC PRN (11:02)
[2017-02-14] MEDS ORDERED: Warfarin perPT PO PRN (11:02)
[2017-02-14] MEDS: *HR* Glimepiride 4 MG TABLET PO SCH ×2 (12:18→15:52)
[2017-02-14] MEDS: *HR* SitaGLIPtin 100 MG TABLET PO SCH (12:18)
[2017-02-14] MEDS ORDERED: *HR* Warfarin 7.5 MG TABLET PO SCH (18:00)
[2017-02-15 07:06] LABS: INR 1.7; Prothrombin Time 18.8 Seconds (9.4-12.1)
[2017-02-15] MEDS: tiZANidine 4 MG TABLET PO SCH ×2 (09:00→20:37)
[2017-02-15] MEDS: *HR* Glimepiride 4 MG TABLET PO SCH (09:01)
[2017-02-15] MEDS: Lisinopril 20 MG TABLET PO SCH (09:01)
[2017-02-15] MEDS: Divalproex (12 HR) 250 MG TABLET PO SCH ×2 (09:02→20:36)
[2017-02-15] MEDS: *HR* SitaGLIPtin 100 MG TABLET PO SCH (09:02)
[2017-02-15] MEDS: Insulin LISPRO 300 UNITS/3 ML VIAL SQ SCH ×4 (09:23→20:39)
[2017-02-15] MEDS: Furosemide 40 MG TABLET PO SCH (11:43)
--- NOTE | 2017-02-15 14:50 | Internal Med Progress Note ---
Date of Encounter: 02/15/17 Time of Encounter: 10:30 - Assessment and plan (1) Flash pulmonary edema Current Visit: Yes Status: Acute Assessment and plan: Acute pulmonary edema causing shortness of breath - secondary to acute exacerbation of chronic systolic CHF LVEF 40-45% - symptoms now improved Continue Lasix, wean off BiPAP, O2 via nasal cannula Chest x-ray - cardiomegaly with vascular congestion and interstitial infiltrates likely edema Echocardiogram - LVEF 40-45%, mild diastolic dysfunction, normal RV size and function EKG - atrial paced rhythm Troponin - 0.01 BN peptide - 833 Strict intake output, daily weight, fluid restriction, cardiac telemetry, anticipate discharge in a.m. (2) Atrial fibrillation Current Visit: No Status: Acute Assessment and plan: Chronic atrial fibrillation - rate controlled Continue atenolol, anticoagulation with warfarin Labs in a.m. 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 - Time Spent With Patient 25 - 35 minutes - Subjective Interval history: Examined this morning. Patient is awake and romero. Not in any distress. Denies any chest pain or shortness of breath. States she feels better. Currently doing well on O2 via nasal cannula. BiPAP being weaned off. No fever. Hemodynamically stable. - Constitutional Vitals: Temp Pulse Resp BP Pulse Ox 97.3 F L 66 17 138/74 97 02/15/17 04:00 02/15/17 07:00 02/15/17 07:00 02/15/17 07:00 02/15/17 07:00 General appearance: Present: A&O X 3, morbidly obese, pleasant, no acute distress, answers questions appropriately - Head Head exam: Present: atraumatic - Eye Eye exam: Present: EOMI - ENT ENT exam: Present: mucous membranes moist - Respiratory Respiratory exam: Present: decreased breath sounds (Slightly decreased in both bases, but otherwise clear to auscultation). Absent: rales, rhonchi, wheezes, tachypnea - Cardiovascular Cardiovascular exam: Present: RRR, +S1, +S2 - GI/Abdominal GI/Abdominal exam: Present: soft. Absent: distended, firm, guarding, tenderness - Extremities Exam Extremities exam: Present: pedal edema (Mild bilateral), radial pulses palpable and symmetrical. Absent: calf tenderness, cyanotic - Neurological Exam Neurological exam: Present: alert, oriented X3, no focal deficits. Absent: facial droop, speech deficit Internal Medicine: Result - Labs CBC & Chem 7: 02/14/17 05:55 02/14/17 05:55 - ABG Interpretation ABG results: ABG ABG pH 7.38 pH Units (7.32-7.45) 02/14/17 03:20 ABG pCO2 54 mmHg (35-45) H 02/14/17 03:20 ABG pO2 129 mmHg (85-104) H 02/14/17 03:20 ABG O2 Saturation 99 % (95-98) H 02/14/17 03:20 PT/INR, D-dimer PT 18.8 Seconds (9.4-12.1) H 02/15/17 06:56 Consult Discharge Plan - Plan Referrals: Chester Mcknight M.D. [Primary Care Provider] - 02/21/17 1:40 pm
[2017-02-15] MEDS ORDERED: *HR* Warfarin 7.5 MG TABLET PO ONE (18:00)
[2017-02-15] MEDS ORDERED: *HR* Warfarin 5 MG TABLET PO SCH (18:00)
[2017-02-16 05:44] LABS: INR 2.3; Prothrombin Time 25.4 Seconds (9.4-12.1)
[2017-02-16 05:51] LABS: BUN/Creatinine Ratio 28 (6-26); Blood Urea Nitrogen 20 mg/dL (7-20); Carbon Dioxide 28 mEq/L (19-29); Chloride 105 mEq/L (98-109); Glucose 137 mg/dL (70-99); Osmolality,Calculated 297 (280-300); Potassium 3.6 mEq/L (3.5-4.5); Sodium 141 mEq/L (136-145); eGFR For African Americans > 60 (> 60); eGFR For Non-African Americans > 60 (> 60)
[2017-02-16] MEDS: *HR* SitaGLIPtin 100 MG TABLET PO SCH (08:48)
[2017-02-16] MEDS: Insulin LISPRO 300 UNITS/3 ML VIAL SQ SCH ×2 (08:48→12:37)
[2017-02-16] MEDS: Lisinopril 20 MG TABLET PO SCH (08:48)
[2017-02-16] MEDS: Divalproex (12 HR) 250 MG TABLET PO SCH (08:48)
[2017-02-16] MEDS: tiZANidine 4 MG TABLET PO SCH (08:48)
--- NOTE | 2017-02-16 09:54 | Discharge Summary ---
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 Chest x-ray - cardiomegaly with vascular congestion and interstitial infiltrates likely edema Echocardiogram - LVEF 40-45%, mild diastolic dysfunction, normal RV size and function EKG - atrial paced rhythm Troponin - 0.01 BN peptide - 833 Advised 1.5 L fluid restriction, stable for discharge today Advised to follow up primary care physician, return if symptoms worsen Continue all home medications (2) Atrial fibrillation Priority: Primary Status: Acute Comments: Chronic atrial fibrillation - rate controlled Continue sotalol, anticoagulation with warfarin INR is therapeutic Qualifiers: Atrial fibrillation type: chronic Qualified Code(s): I48.2 - Chronic atrial fibrillation (3) Diabetes mellitus Priority: Secondary Status: Chronic Comments: Diabetes mellitus type 2, [id number], hyperglycemia Continue usual home meds Qualifiers: Diabetes mellitus type: type 2 Diabetes mellitus complication status: without complication Diabetes mellitus terminal gauger supervisor insulin use: without terminal gauger supervisor use Qualified Code(s): E11.9 - Type 2 diabetes mellitus without complications (4) Hypertension Priority: Secondary Status: Chronic Comments: Essential hypertension, controlled, continue lisinopril Qualifiers: Hypertension type: essential hypertension Qualified Code(s): I10 - Essential (primary) hypertension (5) Pacemaker Priority: Secondary Status: Chronic Comments: History of pacemaker placement - paced rhythm (6) Morbid obesity with BMI of 45.0-49.9, adult Priority: Secondary Status: Chronic Comments: BMI 46.0, patient is being discharged with home health and physical therapy - Discharge Medications Home Medications: Divalproex (12 HR) [Depakote (12 HR)] 250 mg PO BID 02/12/17 [History] Flaxseed Oil [[place]-3 Flaxseed Oil] 1,000 mg PO DAILY 02/12/17 [History] Furosemide [Lasix] 40 mg PO DAILY@1200 02/12/17 [History] Gabapentin [Neurontin] 600 mg PO TID 02/12/17 [History] Garlic [Odor Free Garlic] 100 mg PO DAILY 02/12/17 [History] Glimepiride [Amaryl] 4 mg PO BID 02/12/17 [History] Lisinopril [Zestril] 40 mg PO DAILY 02/12/17 [History] Multivitamin/Iron/Folic Acid [Centrum Complete Multivit Tab] 1 tab PO DAILY [History] Oxybutynin Chloride [Ditropan Xl] 10 mg PO BID 02/12/17 [History] Potassium Chloride [Klor-Con 10] 10 meq PO DAILY 02/12/17 [History] Prevagen 1 tab PO DAILY 02/12/17 [History] Rosuvastatin Calcium [Crestor] 10 mg PO DAILY 02/12/17 [History] SitaGLIPtin [Januvia] 100 mg PO DAILY 02/12/17 [History] Sotalol [Betapace] 80 mg PO Q12HR 02/12/17 [History] Torsemide [Demadex] 20 mg PO DAILY 02/12/17 [History] Warfarin [Coumadin] 5 mg PO MOWEFR 02/12/17 [History] Warfarin [Coumadin] 7.5 mg PO SUTUTHSA 02/12/17 [History] Zinc Gluconate [Zinc] 30 mg PO DAILY 02/12/17 [History] Allergies/Adverse Reactions: 3 Allergy/AdvReac Type Severity Reaction Status Date / Time adhesive tape Allergy Rash Verified 02/12/17 10:32 Sulfa (Sulfonamide Allergy See Verified 02/12/17 10:32 Antibiotics) Comments Date of admission: 02/12/17 12:42 Primary care physician: Chester Mcknight M.D. Consults: 02/12/17 13:36 Consult to Human Services Manager [CONS] Routine Reason for SW Consult: Would like to sign papers for living will and POA Anticipated date of discharge: 02/16/17 - Patient Status Disposition: Home Health Service Condition: Good Functional capacity at discharge: uses cane/walker Overall status at discharge: patient is progressing back to baseline - Discharge Instructions Instructions: Atrial Fibrillation (DC), Pulmonary Edema (DC), Pulmonary Edema ( GEN), Chronic Hypertension (DC) Follow Up With: Chester Mcknight M.D. [Primary Care Provider] - 02/21/17 1:40 pm Forms: ED Satisfaction Letter - Diet and Activity Activity: as per physical therapy, increase activity as tolerated Diet: advance to your usual diet, diabetic diet Hospital course: Ms. Burns is a 76 year old female with past medical history atrial fibrillation, CHF, diabetes and hypertension and status post pacemaker. Patient presented to the ED with complaints of shortness of breath. Patient was initially minimally responsive status post cataract surgery. She became dyspneic and started to to have hypoxia. This apparently happened when she was trying to get up from surgical table. She was initially given IV Lasix and was also started on BiPAP. She was then admitted to the ICU. Her symptoms improved after Lasix. Initial EKG revealed paced rhythm. Troponin is negative. BiPAP was slowly weaned off. BNP peptide was 833. Chest x-ray revealed cardiomegaly with vascular congestion consistent with CHF. Echocardiogram revealed LVEF 40-45%. There was also diastolic function. Patient was transferred out of the ICU to the regular floor. Cardiac telemetry was continued. Lasix was continued. Patient was on strict I's and O's, daily weights recorded, and restriction. Patient was continued on warfarin for anticoagulation for atrial fibrillation. She was on insulin sliding scale for diabetes. Continue to her blood pressure medications. Patient is now tolerating oral diet and ambulating. No other acute events or complications during her stay in the hospital. Patient and daughter have been explained about her condition and plan of care in detail. They understood and agreed. Patient states she feels better and wants to go home today. Patient has been advised to follow-up with her primary care physician and her aircraft inspection record clerk. She stated that she will follow up next week. Patient states she takes Lasix in the morning and Torsemide in the evening, as per cardiology.. Patient is being discharged in stable condition. - Time Spent with Patient Total time spent providing and/or coordinating discharge services: Greater than 30 minutes - Constitutional Vitals: Temp Pulse Resp BP Pulse Ox 97.7 F 60 16 159/67 96 02/16/17 07:14 02/16/17 07:14 02/16/17 07:14 02/16/17 07:14 02/16/17 07:14 General appearance: Present: A&O X 3, morbidly obese, pleasant, no acute distress, answers questions appropriately - Head Head exam: Present: atraumatic - Eye Eye exam: Present: EOMI - ENT ENT exam: Present: mucous membranes moist - Respiratory Respiratory exam: Present: CTAB. Absent: rales, rhonchi, wheezes, tachypnea - Cardiovascular Cardiovascular exam: Present: RRR, +S1, +S2 - GI/Abdominal GI/Abdominal exam: Present: soft (Obese). Absent: distended, firm, guarding, tenderness - Extremities Exam Extremities exam: Present: pedal edema (Bilateral leg pitting 2+ edema, chronic and persistent - incorrectly documented as mild edema yesterday), radial pulses palpable and symmetrical. Absent: cyanotic - Neurological Exam Neurological exam: Present: alert, oriented X3, no focal deficits. Absent: facial droop, speech deficit
--- NOTE | 2017-02-16 10:27 | Physician Discharge Referral ---
Home Health/Hosp Referral Info Transfer to: Home Health Provider in Charge Post Discharge: PCP - Diagnosis (1) Flash pulmonary edema Priority: Primary Status: Acute (2) Atrial fibrillation Priority: Primary Status: Acute (3) Diabetes mellitus Priority: Secondary Status: Chronic (4) Hypertension Priority: Secondary Status: Chronic (5) Pacemaker Priority: Secondary Status: Chronic (6) Morbid obesity with BMI of 45.0-49.9, adult Priority: Secondary Status: Chronic - Respiratory Orders Smoking Cessation: Smoking cessation has been advised. For more information, call the [place] Tobacco Quit Line at 9-624-BDXP-NOW. - Diet/Nutrition Diet/Nutrition Orders: Regular (Diabetic diet), Cardiac - Activity Activity Orders: Up ad josé, Ambulate - Services Needed Following services are medically necessary services: Home Health Aide, Physical Therapy, Occupational Therapy - Transfer Medications Home Medications: Divalproex (12 HR) [Depakote (12 HR)] 250 mg PO BID 02/12/17 [History] Flaxseed Oil [[place]-3 Flaxseed Oil] 1,000 mg PO DAILY 02/12/17 [History] Furosemide [Lasix] 40 mg PO DAILY@1200 02/12/17 [History] Gabapentin [Neurontin] 600 mg PO TID 02/12/17 [History] Garlic [Odor Free Garlic] 100 mg PO DAILY 02/12/17 [History] Glimepiride [Amaryl] 4 mg PO BID 02/12/17 [History] Lisinopril [Zestril] 40 mg PO DAILY 02/12/17 [History] Multivitamin/Iron/Folic Acid [Centrum Complete Multivit Tab] 1 tab PO DAILY [History] Oxybutynin Chloride [Ditropan Xl] 10 mg PO BID 02/12/17 [History] Potassium Chloride [Klor-Con 10] 10 meq PO DAILY 02/12/17 [History] Prevagen 1 tab PO DAILY 02/12/17 [History] Rosuvastatin Calcium [Crestor] 10 mg PO DAILY 02/12/17 [History] SitaGLIPtin [Januvia] 100 mg PO DAILY 02/12/17 [History] Sotalol [Betapace] 80 mg PO Q12HR 02/12/17 [History] Tizanidine HCl 2 mg PO BID 02/12/17 [History] Torsemide [Demadex] 20 mg PO DAILY 02/12/17 [History] Warfarin [Coumadin] 5 mg PO MOWEFR 02/12/17 [History] Warfarin [Coumadin] 7.5 mg PO SUTUTHSA 02/12/17 [History] Zinc Gluconate [Zinc] 30 mg PO DAILY 02/12/17 [History] Allergies/Adverse Reactions: 3 Allergy/AdvReac Type Severity Reaction Status Date / Time adhesive tape Allergy Rash Verified 02/12/17 10:32 Sulfa (Sulfonamide Allergy See Verified 02/12/17 10:32 Antibiotics) Comments Certification: Further, I certify that my clinical findings support that this patient is homebound (i.e. absences from home require considerable and taxing effort and are for medical reasons or adventist services or infrequently or short duration when for other reasons) because: Homebound Reason: Patient requires assistance of a person or device to safely leave home Attestation: My signature below is to certify that this patient is under my care and that I, or nurse practitioner, or a physician's administrative assistant front desk working with me, has a face-to -face encounter with this patient.
[2017-02-16 11:49] VITALS: BP 142/68
[2017-02-16] MEDS: Furosemide 40 MG TABLET PO SCH (12:37)
[2017-02-16] MEDS ORDERED: *HR* Warfarin 5 MG TABLET PO ONE (18:00)
--- NOTE | 2017-02-19 08:15 | Electrocardiograph Report ---
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
== END 2017-02-16 15:45 | disposition home health service (06) | DRG 292 ==
LOC: EMEROO 10:03 → ICNU 12:42 → 2NENU 02-14 14:39
PROVIDERS: ADMIT Internal Medicine Pulmonary Disease; ATTEND Internal Medicine Sleep Medicine